=== PATIENT | female | born 1960 | race Caucasian/White ===

== ENCOUNTER 2018-01-31 18:09 | Emergency (ER) | payer OTHER, MEDICARE ==
--- NOTE | 2018-01-31 18:15 | ER Report ---
History and Physical Time Seen By : 18:15 HPI/ROS CHIEF COMPLAINT: Lower abdominal pain HISTORY OF PRESENT ILLNESS: 58-year-old female with history of Crohn's, on immunosuppressive agent has been sick since Friday with urinary tract symptoms. She was seen in [place]. She is receive Rocephin shot each of the last 3 days. She is traveling back to [facility] from [place]. She's had worsening lower abdominal pain with diarrhea which began before she developed a UTI symptoms on Friday. She notes diffuse severe abdominal pain crampy in nature without fever or chills. She's had no blood in her diarrhea. She's had severe nausea but no vomiting. She states she is prone to Clostridium difficile Allergies: Coded Allergies: Penicillins (Verified Allergy, Unknown, 01/31/18) Sulfa (Sulfonamide Antibiotics) (Verified Allergy, Unknown, 01/31/18) cephalexin (Verified Adverse Reaction, Unknown, 01/31/18) JOINT PAIN Uncoded Allergies: NARCOTICS (Adverse Reaction, Unknown, ITCHING, 01/31/18) Past Medical/Surgical History Crohn's on immunosuppression Reviewed Nurses Notes: Yes Old Medical Records Reviewed: Yes Constitutional Vital Sign - Last 24 Hours 01/31/18 01/31/18 01/31/18 01/31/18 18:17 18:17 18:30 18:45 Temp 98.2 Pulse 70 65 70 Resp 20 B/P (MAP) 143/83 143/83 (103) 119/78 (92) Pulse Ox 97 96 92 O2 Delivery Room Air 01/31/18 01/31/18 01/31/18 01/31/18 19:00 19:15 19:28 19:30 Pulse 64 61 61 B/P (MAP) 128/58 (81) 120/65 (83) Pulse Ox 93 94 94 O2 Flow Rate 1.0 01/31/18 01/31/18 01/31/18 01/31/18 20:00 20:05 20:20 20:30 Pulse 55 59 53 B/P (MAP) 124/66 (85) 113/64 (80) Pulse Ox 97 96 96 01/31/18 01/31/18 20:35 20:50 Pulse 57 Pulse Ox 94 94 Intake and Output 9/1/18 9/1/18 9/2/18 14:59 22:59 06:59 Intake Total 1000 ml Balance 1000 ml Physical Exam Vital signs stable, afebrile, pulse ox normal General Appearance: The patient is alert, has no immediate need for airway protection and no current signs of toxicity. Moderate distress, slightly pale appearing HEENT: Pupils equal and round no injection. Oropharynx without redness or exudate, mucous. Membranes are moist Respiratory: Chest is non tender, lungs are clear to auscultation. Cardiac: regular rate and rhythm Gastrointestinal: Abdomen is soft, moderate diffuse tenderness with guarding and some rebound in the lower quadrants, no masses, bowel sounds decreased. Musculoskeletal: Neck: Neck is supple and non tender. No lymphadenopathy Extremities have full range of motion and are non tender. No edema Skin: No rashes or lesions. DIFFERENTIAL DIAGNOSIS: After history and physical exam differential diagnosis was considered for abdominal pain including but not limited to appendicitis, cholecystitis, gastritis , gastroenteritis, viral syndrome, food poisoning, Crohn's flare, and urinary tract infection. Medical Decision Making Data Points Result Diagram: 01/31/18191601/31/181916 Laboratory Hematology Test 01/31/18 18:12 01/31/18 19:17 Urine Color Yellow Urine Clarity Clear Urine pH 5.0 pH (4.8-9.5) Urine Specific [place] 1.016 Urine Protein Negative mg/dL (NEGATIVE) Urine Glucose (UA) Negative mg/dL (NEGATIVE) Urine Ketones Negative mg/dL (NEGATIVE) Urine Blood Negative (NEGATIVE) Urine Nitrite Negative (NEGATIVE) Urine Bilirubin Negative (NEGATIVE) Urine Urobilinogen Negative mg/dL (0.2-1.9) Urine Leukocyte Esterase Negative (NEGATIVE) Urine RBC None /HPF (0-2/HPF) Urine WBC 1 /HPF (0-5/HPF) Urine Squamous Epithelial Cells Many /LPF (</=FEW) Urine Transitional Epithelial Cells Few /LPF (NONE-FEW) Urine Bacteria Negative /HPF (NONE-FEW) Urine Mucus None /HPF (NONE-FEW) Red Blood Count 4.04 M/uL (4.17-5.56) Mean Corpuscular Volume 86.1 fL (80.0-96.0) Mean Corpuscular Hemoglobin 30.1 pg (26.0-33.0) Mean Corpuscular Hemoglobin Concent 34.9 g/dL (32.0-36.0) Red Cell Distribution Width 13.7 % (11.5-14.5) Mean Platelet Volume 9.3 fL (7.2-11.1) Neutrophils (%) (Auto) 70.0 % (39.4-72.5) Lymphocytes (%) (Auto) 19.6 % (17.6-49.6) Monocytes (%) (Auto) 7.0 % (4.1-12.4) Eosinophils (%) (Auto) 2.9 % (0.4-6.7) Basophils (%) (Auto) 0.5 % (0.3-1.4) Nucleated RBC Relative Count (auto) 0.0 /100WBC Neutrophils # (Auto) 5.0 K/uL (2.0-7.4) Lymphocytes # (Auto) 1.4 K/uL (1.3-3.6) Monocytes # (Auto) 0.5 K/uL (0.3-1.0) Eosinophils # (Auto) 0.2 K/uL (0.0-0.5) Basophils # (Auto) 0.0 K/uL (0.0-0.1) Nucleated RBC Absolute Count (auto) 0.00 K/uL Erythrocyte Sedimentation Rate 15 mm/HOUR (0-30) Sodium Level 143 mmol/L (137-145) Potassium Level 3.9 mmol/L (3.5-5.0) Chloride Level 110 mmol/L (98-107) Carbon Dioxide Level 21 mmol/L (22-31) Blood Urea Nitrogen 13 mg/dl (7-18) Creatinine 0.50 mg/dl (0.52-1.04) Glomerular Filtration Rate Calc > 60.0 Random Glucose 128 mg/dl (75-110) Lactate 1.6 mmol/L (0.7-2.1) Calcium Level 8.9 mg/dl (8.4-10.2) Total Bilirubin 0.4 mg/dl (0.2-1.3) Aspartate Amino Transf (AST/SGOT) 64 U/L (0-35) Alanine Aminotransferase (ALT/SGPT) 78 U/L (0-56) Alkaline Phosphatase 117 U/L (0-126) C-Reactive Protein 1.4 mg/dl (<1.0) Total Protein 6.9 g/dl (6.3-8.2) Albumin 4.1 g/dl (3.5-5.0) Amylase Level 58 U/L (0-110) Lipase 51 U/L (23-300) Chemistry Test 01/31/18 18:12 01/31/18 19:17 Urine Color Yellow Urine Clarity Clear Urine pH 5.0 pH (4.8-9.5) Urine Specific [place] 1.016 Urine Protein Negative mg/dL (NEGATIVE) Urine Glucose (UA) Negative mg/dL (NEGATIVE) Urine Ketones Negative mg/dL (NEGATIVE) Urine Blood Negative (NEGATIVE) Urine Nitrite Negative (NEGATIVE) Urine Bilirubin Negative (NEGATIVE) Urine Urobilinogen Negative mg/dL (0.2-1.9) Urine Leukocyte Esterase Negative (NEGATIVE) Urine RBC None /HPF (0-2/HPF) Urine WBC 1 /HPF (0-5/HPF) Urine Squamous Epithelial Cells Many /LPF (</=FEW) Urine Transitional Epithelial Cells Few /LPF (NONE-FEW) Urine Bacteria Negative /HPF (NONE-FEW) Urine Mucus None /HPF (NONE-FEW) White Blood Count 7.1 k/uL (4.5-11.0) Red Blood Count 4.04 M/uL (4.17-5.56) Hemoglobin 12.2 g/dL (12.0-16.0) Hematocrit 34.8 % (34.0-47.0) Mean Corpuscular Volume 86.1 fL (80.0-96.0) Mean Corpuscular Hemoglobin 30.1 pg (26.0-33.0) Mean Corpuscular Hemoglobin Concent 34.9 g/dL (32.0-36.0) Red Cell Distribution Width 13.7 % (11.5-14.5) Platelet Count 216 K/uL (150-450) Mean Platelet Volume 9.3 fL (7.2-11.1) Neutrophils (%) (Auto) 70.0 % (39.4-72.5) Lymphocytes (%) (Auto) 19.6 % (17.6-49.6) Monocytes (%) (Auto) 7.0 % (4.1-12.4) Eosinophils (%) (Auto) 2.9 % (0.4-6.7) Basophils (%) (Auto) 0.5 % (0.3-1.4) Nucleated RBC Relative Count (auto) 0.0 /100WBC Neutrophils # (Auto) 5.0 K/uL (2.0-7.4) Lymphocytes # (Auto) 1.4 K/uL (1.3-3.6) Monocytes # (Auto) 0.5 K/uL (0.3-1.0) Eosinophils # (Auto) 0.2 K/uL (0.0-0.5) Basophils # (Auto) 0.0 K/uL (0.0-0.1) Nucleated RBC Absolute Count (auto) 0.00 K/uL Erythrocyte Sedimentation Rate 15 mm/HOUR (0-30) Glomerular Filtration Rate Calc > 60.0 Lactate 1.6 mmol/L (0.7-2.1) Calcium Level 8.9 mg/dl (8.4-10.2) Total Bilirubin 0.4 mg/dl (0.2-1.3) Aspartate Amino Transf (AST/SGOT) 64 U/L (0-35) Alanine Aminotransferase (ALT/SGPT) 78 U/L (0-56) Alkaline Phosphatase 117 U/L (0-126) C-Reactive Protein 1.4 mg/dl (<1.0) Total Protein 6.9 g/dl (6.3-8.2) Albumin 4.1 g/dl (3.5-5.0) Amylase Level 58 U/L (0-110) Lipase 51 U/L (23-300) Urinalysis Test 01/31/18 18:12 Urine Color Yellow Urine Clarity Clear Urine pH 5.0 pH (4.8-9.5) Urine Specific [place] 1.016 Urine Protein Negative mg/dL (NEGATIVE) Urine Glucose (UA) Negative mg/dL (NEGATIVE) Urine Ketones Negative mg/dL (NEGATIVE) Urine Blood Negative (NEGATIVE) Urine Nitrite Negative (NEGATIVE) Urine Bilirubin Negative (NEGATIVE) Urine Urobilinogen Negative mg/dL (0.2-1.9) Urine Leukocyte Esterase Negative (NEGATIVE) Urine RBC None /HPF (0-2/HPF) Urine WBC 1 /HPF (0-5/HPF) Urine Squamous Epithelial Cells Many /LPF (</=FEW) Urine Transitional Epithelial Cells Few /LPF (NONE-FEW) Urine Bacteria Negative /HPF (NONE-FEW) Urine Mucus None /HPF (NONE-FEW) EKG/Imaging Imaging Results: CT scan of the abdomen and pelvis with IV contrast was obtained. The results of the study are Computed tomograpy abdomen and pelvis with IV contrast Indication: Abdominal pain. History of Crohn's disease. Comparison: None available. . Technique: Transaxial computed tomography images were obtained through the abdomen and pelvis following the injection of nonionic iodinated intravenous contrast. Reformatted coronal and sagittal images were also obtained. One of the following dose optimization techniques was utilized in the performance of this exam: Automated exposure control; adjustment of the mA and/or kV according to the patient's size; or use of an iterative reconstruction technique. Specific details can be referenced in the facility's radiology CT exam operational policy. Contrast: 75 ml of Isovue-370 IV contrast. Findings: Lower lung felipe: Limited views lower lung field are unremarkable. Liver: No focal parenchymal abnormality of the liver. Biliary: There has been previous cholecystectomy. No intrahepatic or extra hepatic biliary dilatation. Pancreas: Normal appearance. Spleen: Normal appearance. Adrenal glands: Unremarkable. Kidneys / retroperitoneum: No evidence of hydronephrosis or obstructive uropathy. There is a right lower pole renal stone which measures 3 mm in size. Bowel / peritoneum / mesenteries: No evidence of colonic wall thickening or pericolonic inflammation. There are multiple moderately to severely dilated small bowel loops present within the central pelvis. There is a focal transition point identified within the right mid abdomen. The contents of the small bowel at the transition point resembles stool suggesting prolonged small bowel stasis. The transition point is seen involving the distal ileum. There is a transition from a normal wall thickness to a long segment of distal and terminal ileum with severe wall and mucosal thickening. There is marked luminal narrowing along the course of this abnormal distal bowel. Findings are compatible with Crohn's exacerbation with a high-grade small bowel obstruction. No pneumatosis. No free air. There is some free fluid within the folds of the mesentery of the abnormally dilated small bowel loops. There is prominent vascularity along the thickened segment of the small bowel. There is free pelvic fluid which is small in volume. Lymph node assessment: No pathologic adenopathy identified. Pelvic structures: Appear unremarkable. Vessels: Scattered atherosclerotic calcifications seen throughout a nonaneurysmal abdominal aorta and branches. Musculoskeletal / Body wall: Multilevel degenerative changes involve the spine. IMPRESSION: 1. High-grade small bowel obstruction with a transition point seen involving the distal ileum. Transition point is seen at a site consistent with acute Crohn's exacerbation involving the distal ileum. 2. Small volume of mesenteric fluid and free pelvic fluid. 3. Prior cholecystectomy. 4. Nonobstructing right lower pole renal stone. The study was read by the radiologist. I viewed the images myself on the PACS system. ED Course/Re-evaluation Clinical Indication for ER IV: Hydration, IV Access ED Course Patient was admitted to an examination room. H&P was done. The differential diagnoses was considered. On clinical examination. Patient has an acute abdomen. Her vital signs are stable. She is on immunosuppression. She has a known history of Crohn's disease. She thinks she might have a bowel ob struction. She's been undergoing treatment for UTI with Rocephin 1 g IM the last 3 days. She noted some lower abdominal pain and pressure. She was relieved when she was able to void her urine. Patient notes her symptoms are continuing to get worse. Patient's treated with IV fluid hydration. Her diagnostic laboratory studies are unremarkable. She receives IV fentanyl with improvement of her symptoms. Her CT scan shows a high-grade bowel obstruction with symptoms in the terminal ileum consistent with Crohn's flare. Results are discussed with the patient. She is traveling back home to [place]. She would like to go to [place] be admitted to her doctor's. Offer her admission and surgical consult here. He did mention that the treatment might involving NG tube and she states that she would refuse NG placement. Patient was given Solu- Medrol 125 mg IV. A 2nd dose of fentanyl 50 g IV and her IV was removed. She is discharged with copies of her CT scan to follow-up with her GI doctor down in [place] or [place]. 01/31/2018 9:57:16 pm a call was placed to [facility]. The ER attending was informed of the potential visit from this patient. Decision to Disposition Date: Jan 31, 2018 Decision to Disposition Time: 20:51 Depart Departure Latest Vital Signs Vital Signs Date Time Temp Pulse Resp B/P (MAP) Pulse Ox O2 Delivery O2 Flow Rate FiO2 01/31/18 20:50 94 01/31/18 20:35 57 01/31/18 20:30 113/64 (80) 01/31/18 19:28 1.0 01/31/18 18:17 98.2 20 Room Air Impression: Primary Impression: Small bowel obstruction Additional Impressions: Crohns disease Immunosuppression Condition: Improved Disposition: HOME OR SELF-CARE Patient Instructions: Bowel Obstruction (ED), Crohn Disease (ED) Additional Instructions: Do not eat or drink anything Follow-up with your doctors as soon as possible Problem Qualifiers Additional Impressions: Crohns disease Gastrointestinal tract location: small intestine Digestive disease complication type: without complication Qualified Codes: K50.00 - Crohn's disease of small intestine without complications BING ABBOTT DO Jan 31, 2018 18:15
[2018-01-31] MEDS ORDERED: NS(*) 0.9% 1000 ML BAG 1,000 ML IV ONE (18:23)
[2018-01-31] MEDS ORDERED: diphenhydrAMINE 50 MG/ML VIAL IVP ONE (18:25)
[2018-01-31] MEDS ORDERED: ONDANSETRON 4 MG/2 ML VIAL IVP ONE (18:25)
[2018-01-31] MEDS ORDERED: fentaNYL CITR 100 MCG/2 ML AMP IVP ONE ×3 (18:25→20:50)
[2018-01-31] MEDS ORDERED: IOPAMIDOL 76% 75 ML INFUS BTL 75 ML ONE (18:36)
[2018-01-31 19:26] LABS: PLATELET COUNT, AUTOMATED 216 K/uL (150-450)
[2018-01-31 20:30] VITALS: BP 113/64
--- NOTE | 2018-01-31 20:46 | RADIOLOGY IMAGING REPORT ---
FACILITY: [facility] [place] PATIENT NAME: Zohra Rodriguez : 1960 MR: [id number] V: [id number] EXAM DATE: ORDERING PHYSICIAN: BING ABBOTT TECHNOLOGIST: [place] [facility] [place] Zohra Rodriguez : 1960 Visit/Account:[id number] Date of Sevice: 01/31/2018 Computed tomograpy abdomen and pelvis with IV contrast Indication: Abdominal pain. History of Crohn's disease. Comparison: None available. . Technique: Transaxial computed tomography images were obtained through the abdomen and pelvis follo wing the injection of nonionic iodinated intravenous contrast. Reformatted coronal and sagittal image s were also obtained. One of the following dose optimization techniques was utilized in the performance of this exam: Autom ated exposure control; adjustment of the mA and/or kV according to the patient's size; or use of an i terative reconstruction technique. Specific details can be referenced in the facility's radiology C T exam operational policy. Contrast: 75 ml of Isovue-370 IV contrast. Findings: Lower lung felipe: Limited views lower lung field are unremarkable. Liver: No focal parenchymal abnormality of the liver. Biliary: There has been previous cholecystectomy. No intrahepatic or extra hepatic biliary dilatation . Pancreas: Normal appearance. Spleen: Normal appearance. Adrenal glands: Unremarkable. Kidneys / retroperitoneum: No evidence of hydronephrosis or obstructive uropathy. There is a right lo wer pole renal stone which measures 3 mm in size. Bowel / peritoneum / mesenteries: No evidence of colonic wall thickening or pericolonic inflammation. There are multiple moderately to severely dilated small bowel loops present within the central pelvi s. There is a focal transition point identified within the right mid abdomen. The contents of the sma ll bowel at the transition point resembles stool suggesting prolonged small bowel stasis. The transit ion point is seen involving the distal ileum. There is a transition from a normal wall thickness to a long segment of distal and terminal ileum with severe wall and mucosal thickening. There is marked l uminal narrowing along the course of this abnormal distal bowel. Findings are compatible with Crohn's exacerbation with a high-grade small bowel obstruction. No pneumatosis. No free air. There is some f ree fluid within the folds of the mesentery of the abnormally dilated small bowel loops. There is pro minent vascularity along the thickened segment of the small bowel. There is free pelvic fluid which i s small in volume. Lymph node assessment: No pathologic adenopathy identified. Pelvic structures: Appear unremarkable. Vessels: Scattered atherosclerotic calcifications seen throughout a nonaneurysmal abdominal aorta and branches. Musculoskeletal / Body wall: Multilevel degenerative changes involve the spine. IMPRESSION: 1. High-grade small bowel obstruction with a transition point seen involving the distal ileum. Transi tion point is seen at a site consistent with acute Crohn's exacerbation involving the distal ileum. 2. Small volume of mesenteric fluid and free pelvic fluid. 3. Prior cholecystectomy. 4. Nonobstructing right lower pole renal stone. Results were discussed with BING ABBOTT at 01/31/2018 8:40 PM. Report Dictated By: Joe Polanco at 01/31/2018 8:31 PM Report E-Signed By: Joe oPlanco at 01/31/2018 8:43 PM WSN:[id number]
[2018-01-31] MEDS ORDERED: methylPREDNIS SUCC 125 MG/2ML IVP ONE (20:50)
== END 2018-01-31 21:12 | disposition home or self-care (01) ==
LOC: ER 18:23
DX: K56.609 Unspecified intestinal obstruction, unspecified as to partial versus complete obstruction (principal); K50.00 Crohn's disease of small intestine without complications
CPT/HCPCS: 74177; 81001; 82150; 83605; 83690; 85025; 85651; 86140; 96361; 96374; 96375; 96376; 99284; J1200; J2405; J2930; J3010; J7030; Q9967; 82040; 82247; 82310; 82374; 82435; 82565; 82947; 84075; 84132; 84155; 84295; 84450; 84460; 84520